=== PATIENT | female | born 1965 | race Caucasian/White ===

== ENCOUNTER 2017-04-05 13:22 | Emergency (ER) | payer SELFPAY ==
[~2017-04-05] VITALS: Ht 177.8 cm; Wt 100.0 kg
[~2017-04-05 13:22] MED LIST: DOXY100T OR; OXYC-360 PO; SULF1TAB47 PO; Z.0.NO CURRENT MEDS
[2017-04-05 13:25] VITALS: BP 207/114; PULSE 76; RESP 20; TEMP 97.9; O2SAT 100
--- NOTE | 2017-04-05 13:42 | PD ---
HPI Chief Complaint: Injury Time Seen by Provider: 13:42 Travel History International Travel<30 days: No Contact w/Intl Traveler<30days: No Traveled to known affect area: No History of Present Illness HPI 51-year-old female presents to the emergency Department with complaint of right wrist pain and an abrasion to her right knee after tripping over a curb a few hours ago. Denies hitting her head or loss of consciousness. Denies endocarditis. Denies neck pain or back pain. Has been ambulatory since the fall. Denies other extremity pain. Denies right knee pain. He is up-to-date on her tetanus vaccination. Denies paresthesias, loss of sensation to right upper extremity. Reports decreased range of motion at the wrist. Denies chest pain, shortness of breath, abdominal pain, nausea, vomiting. Took 600 mg ibuprofen prior to arrival. Has no known allergies. Has no other medical complaints. No other modifying factors or associated signs and symptoms. PFSH Past Medical History Diminished Hearing: No ?: Not LMP: MENOPAUSAL Past Surgical History Cholecystectomy: Yes Social History Alcohol Use: Yes (3X A WEEK) Tobacco Use: Yes (1 PPD) Substance Use: No Allergies-Medications (Allergen,Severity, Reaction): Coded Allergies: No Known Allergies (Verified , 04/05/17) Reported Meds & Prescriptions Reported Meds & Active Scripts Active Lortab (Hydrocodone-Acetaminophen) 5-325 Mg Tab 1-2 Tab PO Q6H PRN Ibuprofen 800 Mg Tab 800 Mg PO Q6HR PRN Percocet (Oxycodone/Acetaminophen) 5 Mg/325 Mg Tab 1-2 Tab PO Q4-6HPRN FOR PAIN Doxycycline Hyclate 100 Mg Tab 100 Mg OR BID Bactrim Ds (Trimethoprim/Sulfamethoxazole) Tab 2 Tab PO BID Reported No Current Meds (Miscellaneous Medication) Misc Review of Systems Except as stated in HPI: all other systems reviewed are Neg Physical Exam Narrative GENERAL: Well-nourished, well-developed female patient, in no acute distress SKIN: Warm and dry. Abrasion noted to right knee. HEAD: Atraumatic. Normocephalic. No facial or scalp abrasions or lacerations noted. EYES: Pupils equal and round. No scleral icterus. No injection or drainage. No raccoon eyes. ENT: Mucosa pink and moist. Airway patent. Nares without nasal blood, purulent drainage. EARS: Bilateral pinnae and external canals appear within normal limits. No otorrhea. No beckham signs. NECK: Moving freely.. Trachea midline. No lymphadenopathy. Active rotation of the neck greater than 45 left and right. No midline point tenderness on palpation of the cervical spine. No obvious deformities. CHEST: No retractions or use of accessory muscles. CARDIOVASCULAR: Regular rate. RESPIRATORY: No accessory muscle use. GASTROINTESTINAL: Obese. MUSCULOSKELETAL: Right wrist mildly edematous and without erythema or ecchymosis ; with tenderness on palpation psych: No obvious deformities; all fingers with full range of motion and sensory intact. Right upper extremity is supple and non-tense with 2+ radial pulses and sensory intact. No obvious deformities. No clubbing. No cyanosis. No edema. BACK: No midline Point tenderness on palpation of the lumbar or thoracic spine. No obvious deformities. Patient sitting up in bed at 90. NEUROLOGICAL: Awake and alert. Oriented 3. No obvious cranial nerve deficits. Motor grossly within normal limits. Normal speech. Moves all extremities. 5/5 strength to all extremities. Sensory intact. PSYCHIATRIC: Appropriate mood and affect; insight and judgment normal. Data Data Last Documented VS Vital Signs Date Time Temp Pulse Resp B/P Pulse Ox O2 Delivery O2 Flow Rate FiO2 04/05/17 13:49 80 18 171/96 98 Room Air 04/05/17 13:25 97.9 Orders Wrist, Complete ([id number]) (04/05/17 13:42) Ice/Cold Pack (04/05/17 13:42) Wound Care (04/05/17 13:44) Splint Or Brace Apply/Monitor (04/05/17 14:29) Sling Cradle Arm (04/05/17 ) MDM Medical Decision Making Medical Screen Exam Complete: Yes Emergency Medical Condition: Yes Medical Record Reviewed: Yes Differential Diagnosis Fall, abrasion, wrist sprain, wrist fracture Narrative Course 51-year-old female with right wrist injury and abrasion to her right knee after mechanical fall today. Denies hitting her head or loss of consciousness. Denies neck pain or back pain. Patient's blood pressure is elevated in the ER. She denies history of hypertension and does not take medications. She is asymptomatic. This likely associated to pain. Blood pressure recheck 171/96. Patient took 600 mg of ibuprofen prior to arrival. Ice pack ordered. Wound care provided in the ER. Right wrist x-ray ordered. 1430: Right wrist x-ray concludes a subtle minimally displaced distal right radial fracture with associated cortical step-off on the lateral view. Sugar tong splint placed for support. Arm sling provided for support. Ibuprofen and Lortab prescribed for home. Instructed patient to follow up with orthopedics 2- 3days. Patient verbalizes understanding and agreement with treatment plan. Patient is medically cleared and stable for discharge. Discussed reasons to return to the emergency department. Instructed patient to follow up with primary care provider. Patient agrees with treatment plan. The patients vital signs are stable and the patient is stable for outpatient follow-up and treatment. Patient discharged home, stable and in no acute distress. Diagnosis Primary Impression: Radius distal fracture Qualified Code: S52.501A - Closed fracture of distal end of right radius, unspecified fracture morphology, initial encounter Referrals: Orthopedist Primary Care Physician Patient Instructions: General Instructions, Wrist Fracture in Adults (ED) Departure Forms: Tests/Procedures Additional Instructions: Tylenol or ibuprofen as directed and as needed to reduce pain Rest, ice, compress, and elevate extremity to decrease pain and inflammation Wrist Splint for support; do not remove splint until cleared by orthopedics Avoid aggravating activity; increase activity as tolerated Follow-up with primary care provider Follow-up with orthopedics 2-3 days Return to the emergency department immediately with worsening symptoms Med/Other Pt SpecificInfo: Prescription(s) given Scripts Hydrocodone-Acetaminophen (Lortab)5-325 Mg Tab1-2 Tab PO Q6H PRN (PAIN GREATER THAN 5) #20 TAB Ref 0 Prov:Jose Antonio Gamez MD 04/05/17 Ibuprofen 800 Mg [id number] Mg PO Q6HR PRN (PAIN LESS THAN 5 ON SCALE) #30 TAB Ref 0 Prov:Lois Zhong 04/05/17 Disposition: 01 DISCHARGE HOME Condition: Stable Lois Zhong Apr 05, 2017 13:42
[2017-04-05 13:49] VITALS: BP 171/96; PULSE 80; RESP 18; O2SAT 98
--- NOTE | 2017-04-05 14:20 | RADRPT ---
EXAM DATE/TIME: 04/05/2017 14:08 [facility] COMPARISON: No previous studies available for comparison. INDICATIONS : Fall. Right wrist pain. MEDICAL HISTORY : None. SURGICAL HISTORY : None. ENCOUNTER: Initial ACUITY: 1 day PAIN SCORE: 7/10 LOCATION: Right lateral wrist FINDINGS: Subtle linear lucency in the distal radius with associated cortical step-off on the lateral view cons istent with a minimally displaced subtle distal radial fracture. Remaining osseous structures appear intact. Carpal bones are intact. Joint spaces are maintained. CONCLUSION: 1. Subtle minimally displaced distal right radial fracture, as above. Nasir Salazar MD on April 05, 2017 at 14:10 Board Certified Radiologist. This report was verified electronically.
[2017-04-05] MEDS ORDERED: IBUP800T23 PO (14:30)
[2017-04-05] MEDS ORDERED: HYDR-3533 PO (14:33)
[2017-04-18] MEDS ORDERED: HYDR-3580 PO (11:39)
== END 2017-04-05 15:11 | disposition home or self-care (01) ==
LOC: NEPK 13:22
DX: S52.501A Unspecified fracture of the lower end of right radius, initial encounter for closed fracture (principal); S80.211A Abrasion, right knee, initial encounter; F17.200 Nicotine dependence, unspecified, uncomplicated; W01.0XXA Fall on same level from slipping, tripping and stumbling without subsequent striking against object, initial encounter; Z79.899 Other long term (current) drug therapy
CPT/HCPCS: 29125; 73110

== ENCOUNTER → 2017-04-18 | Day surgery (SDC) | payer SELFPAY ==
[~2017-04-18] VITALS: Ht 177.8 cm; Wt 111.0 kg
[~2017-04-18] MED LIST changes: +*morphine SULFATE 8 MG/ML PERIprocedure ONLY ONE; +ACETAMINOPHEN 1000 MG/100 ML VIAL IV ONE; +ACETAMINOPHEN/HYDROcodone 325 MG/7.5 MG TAB PO PRN; +CHLORHEXIDINE GLUCONATE 2 % 1 PACK (2 CLOTHS) TOPICAL PRN; +CHLORHEXIDINE GLUCONATE 4% SOLN 120 ML BTL TOPICAL SCH; +DEXAMETHASONE SOD PHOS 4 MG/ML VIAL ONE; +DO NOT ADM ANY ANTICOAGULANT DRUGS PRN; +FAMOTIDINE 20 MG/2 ML VIAL ONE; +GENTAMICIN SULFATE 80 MG/2 ML VIAL ONE; +HYDR-3533 PO; +HYDR-3580 PO; +IBUP800T23 PO; +INSULIN HUMAN REGULAR 1,000 UNITS/10 ML VIAL SQ PRN; +LACTATED RINGER'S 1000 ML INJ 1,000 ML ONE; +LACTATED RINGER'S 1000 ML IV PRN; +METOPROLOL TARTRATE 25 MG TAB PO PRN; +MIDAZOLAM HCL 2 MG/2 ML VIAL ONE; +MORPHINE SULFATE 8 MG/ML INJ IV PUSH PRN; +ONDANSETRON HCL 4 MG/2 ML VIAL IV PUSH ONE; +POVIDONE IODINE 5% (ANTISEPSIS KIT) 4 APPLICATIONS EACH NARE PRN; +PROPOFOL 200 MG/20 ML AMP IV ONE; +SODIUM CHLOR 0.9% 250 ML INJ 250 ML ONE; +SODIUM CHLORID 0.9% 500 ML IV PRN; +VANCOMYCIN 1000 MG/NS 250 ML (for <70 kg) IV SCH; +VANCOMYCIN HCL 1000 MG VIAL ONE; +ceFAZolin 2 GM PREMIX 50 ML IV SCH; +fentaNYL CITRATE 250 MCG/5 ML AMP ONE
[2017-04-18 09:12] VITALS: BP 158/91; PULSE 73; RESP 16; TEMP 97; O2SAT 100
--- NOTE | 2017-04-18 12:44 | PD.OP ---
cc: Lizandro Wetzel MD Operative Report Date of Surgery: Apr 18, 2017 Preoperative Diagnosis: displaced right distal radius intra-articular fracture Postoperative Diagnosis: Procedure: Open reduction internal fixation right distal radius Anesthesia: Gen. Surgeon: Lizandro Wetzel Transformer Tester(s): MOSES Corcoran PA-C The surgical procedure was assisted by my physician residential real estate assistant. My P.A. presence was necessary throughout this case for the manipulation and positioning of the surgical extremity. My P.A. was assisting me throughout the duration of this procedure. The skill set of a physician residential real estate assistant was medically necessary to complete this procedure. During the surgical case the rad tech was working at the back table and the physician residential real estate assistant was directly assisting me. Operation and Findings: Plan of activity: Fiberglas splint 2 weeks, then removable wrist brace. Nonweightbearing 6 weeks Patient was seen and evaluated preoperatively and found to have a displaced left distal radius intra-articular fracture. Informed consent was obtained after detailed discussion of risk and benefits including bleeding, infection, injury to arteries, nerves, and blood vessels, weakness and numbness of hand, and tendon rupture. Informed consent was obtained. Patient received IV antibiotics prior to incision. Timeout procedure was performed. Operative extremity was prepped with alcohol followed by Hibiclens and draped usual sterile fashion. A standard volar approach to the distal radius was utilized. A 3 inch incision was made over the FCR tendon. Tendon sheath was opened. Pronator quadratus was elevated up. The fracture site was now visualized. The fracture did have intra-articular extension. Traction was applied. The articular surface was reduced. Fracture fragments were manipulated to achieve excellent reduction. K wires were used to hold provisional fixation. Fluoroscopy confirmed appropriate alignment of fracture. A Synthes 2 column variable angle distal radius plate was selected. Plate was provisionally fixed to bone with K wires. 2.7 and 2.4 cortical screws were used to compress plate to bone. Fluoroscopy confirmed appropriate alignment of fracture with well-placed hardware. Multiple 2.4 locking screws were now placed distally. Screws were predrilled and measured for appropriate length. 2 additional screws were placed into the shaft. K wires were removed. Final fluoroscopy revealed excellent of fracture with well-placed hardware. The wound was thoroughly irrigated with sterile saline. Subcutaneous tissue was closed with 3-0 Vicryl and skin was closed with 3-0 nylon. Sterile dressings were applied with Xeroform, 4 x 4, soft roll , and a well padded volar splint. Patient was awakened and transferred to recovery room in stable condition Lizandro Wetzel MD Apr 18, 2017 12:44
[2017-04-18 15:12] VITALS: BP 147/86; PULSE 71; RESP 18; TEMP 97.9; O2SAT 96
--- NOTE | 2017-04-18 15:34 | RADRPT ---
EXAM DATE/TIME: 04/18/2017 12:35 [facility] COMPARISON: WRIST RIGHT COMPLETE ([id number]), April 05, 2017, 14:08. INDICATIONS : ORIF right wrist. MEDICAL HISTORY : None. SURGICAL HISTORY : None. ENCOUNTER: Subsequent ACUITY: 2 weeks PAIN SCORE: Non-responsive. LOCATION: Right distal radius. FINDINGS: Side plate and multiple screws traverse the distal radius with excellent anatomical alignment of the fracture fragments. CONCLUSION: Intact postsurgical changes for technique. Ingrid Haile MD on April 18, 2017 at 15:32 Board Certified Radiologist. This report was verified electronically.
--- NOTE | 2017-04-18 19:41 | EKG ---
Date Performed: 04/18/2017 Time Performed: 09:29:48 PTAGE: 52 years EKG: NORMAL Sinus rhythm PROBABLE NORMAL VARIANT NO MAJOR CHANGE FROM PRIOR TRACING. BORDERLINE ECG PREVIOUS TRACING : 01/05/1994 15.22 DOCTOR: Carl Rowell Interpretating Date/Time 04/18/2017 19:40:32
== END | disposition home or self-care (01) ==
LOC: HSDC 08:31
PROVIDERS: ATTEND Orthopaedic Surgery Orthopaedic Trauma
DX: S52.571A Other intraarticular fracture of lower end of right radius, initial encounter for closed fracture (principal); F17.200 Nicotine dependence, unspecified, uncomplicated; W19.XXXA Unspecified fall, initial encounter; Y92.512 Supermarket, store or market as the place of occurrence of the external cause
CPT/HCPCS: 01830; 25607; 73100; 76000; 93005; C1713; J0131; J0690; J1100; J1580; J2250; J2270; J2405; J3010; J3370; J7050; J7120